=== PATIENT | female | born 1965 | race Caucasian/White ===

== ENCOUNTER 2022-02-25 11:23 | Outpatient (CLI) | payer BC | END 2022-02-25 11:24 | disposition home or self-care (01) | LOC: MERGE 11:23 → BICMAMMO 11:23 | PROVIDERS: ATTEND Family Medicine | DX: Z12.31 Encounter for screening mammogram for malignant neoplasm of breast (principal) | CPT/HCPCS: 77063; 77067 ==

== ENCOUNTER 2023-12-18 14:20 | Outpatient (CLI) | payer BC | END 2023-12-18 14:21 | disposition home or self-care (01) | LOC: BICMAMMO 14:20 | PROVIDERS: ATTEND Nurse Practitioner Family | DX: Z12.31 Encounter for screening mammogram for malignant neoplasm of breast (principal) | CPT/HCPCS: 77063; 77067 ==

== ENCOUNTER 2023-12-27 21:54 | Inpatient (IN) | payer BC ==
[2023-12-27 23:50] LABS: #Basophils Less than 0.03 10x3/uL (0.0-0.2); %Basophils 0.3 % (0.0-1.0); %Lymphocytes 35.8 % (21.0-51.0); %Monocytes 9.3 % (0.0-10.0); %Neutrophils 51.8 % (42.0-75.0); Hematocrit 27.2 % (36.0-47.0); Hemoglobin 9.7 g/dL (12.0-16.0); Mean Corpuscular HGB CONC 35.7 g/dL (32.0-36.0); Mean Corpuscular Hemoglobin 40.6 pg (27.0-31.0); Mean Corpuscular Volume 113.8 fL (78.0-98.0); Platelet Count 178 10x3/uL (130-400); Red Blood Cell (RBC) Count 2.39 mill/uL (4.20-5.40)
[2023-12-28 00:08] LABS: Macrocytosis SLIGHT = 6-15 cells HPF (0-5); Platelet Adequacy Comment Platelets Normal
[2023-12-28 00:20] LABS: CRP,High Sensitivity (Inhouse) 0.29 mg/dL (< or = 0.5)
[2023-12-28 00:21] LABS: ALT (SGPT) 12 U/L (8-55); AST (SGOT) 17 U/L (5-34); Albumin 3.7 g/dL (3.5-5.0); Alkaline Phosphatase 100 U/L (40-110); Anion Gap 15 mmol/L (10-20); BUN (Urea Nitrogen) 17 mg/dL (9.8-20.1); Bilirubin, Total 0.5 mg/dL (0.2-1.2); Calc. Creatinine Clearance 0 mL/min (70-130); Calcium 9.1 mg/dL (7.8-10.44); Carbon Dioxide 26 mmol/L (22-29); Chloride 102 mmol/L (98-107); Estimated GFR 69; Globulin 3.8 g/dL (2.4-3.5); Glucose 261 mg/dL (70-105); Potassium 3.9 mmol/L (3.5-5.1); Protein, Total 7.5 g/dL (6.0-8.3); Sodium 139 mmol/L (136-145)
[2023-12-28] MEDS ORDERED: Cefepime 2 GM VIAL ONE (00:53)
[2023-12-28] MEDS ORDERED: Sodium Chloride 0.9% 100 ML ONE (00:53)
[2023-12-28] MEDS ORDERED: Acetaminophen 325 MG TAB PO PRN (01:19)
[2023-12-28] MEDS ORDERED: Ondansetron PF 4 MG/2 ML Vial IVP PRN (01:19)
[2023-12-28] MEDS ORDERED: Glucagon 1 MG/ML KIT IM PRN (01:20)
[2023-12-28] MEDS ORDERED: Dextrose 5% in Water 1,000 ML IV PRN (01:20)
[2023-12-28] MEDS ORDERED: Dextrose 50% Abboject 50 ML SYRINGE SLOW IVP PRN (01:20)
[2023-12-28] MEDS ORDERED: Vancomycin 1 GM/200 ML (FROZEN) BAG ONE (01:33)
[2023-12-28 02:43] VITALS: BMI 26.7
[2023-12-28] MEDS: Vancomycin HCl 750 MG in Sodium Chloride 0.9% 250 ML 250 ML IVPB SCH (04:38)
[2023-12-28 05:55] LABS: #Basophils Less than 0.03 10x3/uL (0.0-0.2); %Basophils 0.3 % (0.0-1.0); %Eosinophils 1.5 % (0.0-10.0); %Lymphocytes 34.8 % (21.0-51.0); %Monocytes 12.2 % (0.0-10.0); %Neutrophils 50.6 % (42.0-75.0); Hematocrit 27.7 % (36.0-47.0); Hemoglobin 9.8 g/dL (12.0-16.0); Mean Corpuscular HGB CONC 35.4 g/dL (32.0-36.0); Mean Corpuscular Volume 113.1 fL (78.0-98.0); Mean Platelet Volume 10.3 fL (7.4-10.4); Platelet Count 170 10x3/uL (130-400); RBC Distribution Width 12.9 % (11.5-14.5); Red Blood Cell (RBC) Count 2.45 mill/uL (4.20-5.40)
[2023-12-28 06:06] LABS: Anion Gap 11 mmol/L (10-20); BUN (Urea Nitrogen) 15 mg/dL (9.8-20.1); Calc. Creatinine Clearance 88 mL/min (70-130); Carbon Dioxide 26 mmol/L (22-29); Chloride 108 mmol/L (98-107); Estimated GFR 92; Glucose 127 mg/dL (70-105); Potassium 3.9 mmol/L (3.5-5.1); Sodium 141 mmol/L (136-145)
[2023-12-28 06:24] LABS: Macrocytosis SLIGHT = 6-15 cells HPF (0-5); Platelet Adequacy Comment Platelets Normal
[2023-12-28 06:46] LABS: Hemoglobin A1c 7.8 % (4.0-6.0)
[2023-12-28] MEDS: BuPROPion XL 150 MG ER.TAB PO SCH (10:59)
[2023-12-28] MEDS: Levothyroxine Sodium 112 MCG TAB PO SCH (10:59)
[2023-12-28] MEDS: Vancomycin 1 GM in Premix 1 BAG IVPB SCH (14:23)
[2023-12-28] MEDS: Cefepime 2 GM in Sodium Chloride 0.9% 100 ML IVPB SCH (17:44)
[2023-12-28] MEDS: diphenhydrAMINE 50 MG/ML VIAL IVP SCH (21:24)
[2023-12-28] MEDS ORDERED: Vancomycin (BATCH) 1.5 GM in Premix 1 BAG IVPB SCH (22:00)
[2023-12-29 06:19] LABS: #Basophils Less than 0.03 10x3/uL (0.0-0.2); %Basophils 0.4 % (0.0-1.0); %Eosinophils 2.9 % (0.0-10.0); %Lymphocytes 40.8 % (21.0-51.0); %Monocytes 12.3 % (0.0-10.0); %Neutrophils 42.9 % (42.0-75.0); Hematocrit 28.9 % (36.0-47.0); Hemoglobin 9.9 g/dL (12.0-16.0); Mean Corpuscular HGB CONC 34.3 g/dL (32.0-36.0); Mean Corpuscular Hemoglobin 40.2 pg (27.0-31.0); Mean Corpuscular Volume 117.5 fL (78.0-98.0); Mean Platelet Volume 10.2 fL (7.4-10.4); Platelet Count 183 10x3/uL (130-400); RBC Distribution Width 13.2 % (11.5-14.5); Red Blood Cell (RBC) Count 2.46 mill/uL (4.20-5.40)
[2023-12-29 06:33] LABS: Vancomycin, Random 28.1 ug/mL (See Comment)
[2023-12-29 06:34] LABS: Anion Gap 14 mmol/L (10-20); BUN (Urea Nitrogen) 15 mg/dL (9.8-20.1); Calc. Creatinine Clearance 71 mL/min (70-130); Calcium 8.7 mg/dL (7.8-10.44); Carbon Dioxide 25 mmol/L (22-29); Chloride 106 mmol/L (98-107); Estimated GFR 70; Glucose 149 mg/dL (70-105); Potassium 4.1 mmol/L (3.5-5.1); Sodium 141 mmol/L (136-145)
[2023-12-29 06:44] LABS: Macrocytosis SLIGHT = 6-15 cells HPF (0-5); Platelet Adequacy Comment Platelets Normal
[2023-12-29] MEDS: PATIENT'S HOME MEDICATION PO SCH (08:15)
[2023-12-29] MEDS: Levothyroxine Sodium 112 MCG TAB DT SCH (08:15)
[2023-12-29] MEDS: Vancomycin HCl 750 MG in Sodium Chloride 0.9% 250 ML 250 ML IVPB SCH (11:45)
[2023-12-30 05:55] LABS: #Basophils Less than 0.03 10x3/uL (0.0-0.2); %Basophils 0.3 % (0.0-1.0); %Eosinophils 2.7 % (0.0-10.0); %Lymphocytes 37.8 % (21.0-51.0); %Monocytes 11.9 % (0.0-10.0); %Neutrophils 46.3 % (42.0-75.0); Hematocrit 30.5 % (36.0-47.0); Hemoglobin 10.6 g/dL (12.0-16.0); Mean Corpuscular HGB CONC 34.8 g/dL (32.0-36.0); Mean Corpuscular Hemoglobin 40.2 pg (27.0-31.0); Mean Corpuscular Volume 115.5 fL (78.0-98.0); Mean Platelet Volume 10.3 fL (7.4-10.4); Platelet Count 209 10x3/uL (130-400); RBC Distribution Width 13.2 % (11.5-14.5); Red Blood Cell (RBC) Count 2.64 mill/uL (4.20-5.40)
[2023-12-30 06:10] LABS: Vancomycin, Random 24.5 ug/mL (See Comment)
[2023-12-30 06:17] LABS: Anion Gap 11 mmol/L (10-20); BUN (Urea Nitrogen) 16 mg/dL (9.8-20.1); Calc. Creatinine Clearance 74 mL/min (70-130); Calcium 8.9 mg/dL (7.8-10.44); Carbon Dioxide 27 mmol/L (22-29); Chloride 106 mmol/L (98-107); Estimated GFR 75; Glucose 136 mg/dL (70-105); Potassium 4.4 mmol/L (3.5-5.1); Sodium 140 mmol/L (136-145)
[2023-12-30 06:23] LABS: Macrocytosis SLIGHT = 6-15 cells HPF (0-5); Platelet Adequacy Comment Platelets Normal; Polychromasia SLIGHT = 2-3 cells HPF (0-2)
[2023-12-30 11:39] VITALS: BP 107/70; TEMP 98.4
== END 2023-12-30 14:32 | disposition home or self-care (01) | DRG 638 ==
LOC: ERS 21:54 → T4-A 12-28 01:19
PROVIDERS: ADMIT Internal Medicine; ATTEND Hospitalist
DX: E10.69 Type 1 diabetes mellitus with other specified complication (principal); L03.116 Cellulitis of left lower limb; M86.671 Other chronic osteomyelitis, right ankle and foot; E03.9 Hypothyroidism, unspecified; Z98.890 Other specified postprocedural states; Z87.891 Personal history of nicotine dependence; Z79.899 Other long term (current) drug therapy; D53.9 Nutritional anemia, unspecified; S92.321D Displaced fracture of second metatarsal bone, right foot, subsequent encounter for fracture with routine healing
CPT/HCPCS: 36415; 36416; 80048; 80053; 80202; 83036; 84550; 85025; 86141; 87040; 87081; 96365; 96367; J0692; J1200; J3370; J3370-JW; J3490; J7050

== ENCOUNTER 2024-02-04 09:34 | Outpatient (CLI) | payer BC | END 2024-02-04 09:35 | disposition home or self-care (01) | LOC: BICRAD 09:34 | PROVIDERS: ATTEND Podiatrist | DX: S92.321K Displaced fracture of second metatarsal bone, right foot, subsequent encounter for fracture with nonunion (principal); M19.071 Primary osteoarthritis, right ankle and foot; S92.322K Displaced fracture of second metatarsal bone, left foot, subsequent encounter for fracture with nonunion; M87.874 Other osteonecrosis, right foot ==

== ENCOUNTER 2025-04-27 14:33 | Outpatient (CLI) | payer BC | END 2025-04-27 14:34 | disposition home or self-care (01) | LOC: BICRAD 14:33 | PROVIDERS: ATTEND Podiatrist | DX: M19.071 Primary osteoarthritis, right ankle and foot (principal); R60.0 Localized edema; E11.9 Type 2 diabetes mellitus without complications ==